=== PATIENT | female | born 1995 | race Caucasian/White ===

== ENCOUNTER 2017-01-10 14:03 | Emergency (ER) | payer OTHER ==
[2017-01-10 15:01] LABS: ALBUMIN 4.5 g/dL (3.5-5.0); BILIRUBIN - TOTAL 0.2 mg/dL (0.1-1.0); CREATININE 0.8 mg/dL (0.5-1.0); GLOBULIN (CALCULATION) 3.1 g/dL (2.2-4.2); POTASSIUM 3.6 mmol/L (3.5-5.1); TOTAL PROTEIN 7.6 g/dL (6.4-8.3)
[2017-01-10 15:03] LABS: BASOPHIL 0.1 % (0-2); EOSINOPHIL 3.6 % (0-5); HCT 44.3 % (37.0-47.0); HGB 15.1 g/dl (12.5-16.0); LYMPHOCYTE 24.3 % (15-48); MCH 28.9 pg (25.0-31.0); MCHC 34.1 g/dL (32.0-36.0); MCV 84.9 fL (78.0-100.0); MONOCYTE 4.3 % (0-12); MPV 8.8 fL (6.0-9.5); NEUTROPHIL 67.7 % (41-80); PLT 251 K/uL (150-400); RBC 5.22 M/uL (4.20-5.40); RDW 13.6 % (11.5-14.0); WBC 7.5 K/uL (4.0-10.5)
[2017-01-10 15:36] LABS: BILIRUBIN NEGATIVE (NEGATIVE); BLOOD NEGATIVE Ery/uL (NEGATIVE); COLOR YELLOW (YELLOW); GLUCOSE (U) NORMAL (NORMAL); KETONE (U) NEGATIVE (NEGATIVE); LEUKOCYTES 2+ Leu/uL (NEGATIVE); NITRITE NEGATIVE (NEGATIVE); PROTEIN NEGATIVE (NEGATIVE); SPECIFIC GRAVITY 1.025 (1.001-1.030); UROBILINOGEN 0.2 mg/dL (0.2-1.0)
[2017-01-10 15:43] LABS: CLARITY HAZY (CLEAR)
[2017-01-10 15:56] LABS: BACTERIA 1+; SQUAMOUS EPITHELIAL CELLS 20-50
== END 2017-01-10 17:11 | disposition home or self-care (01) ==
LOC: FER 14:03
PROVIDERS: Nurse Practitioner Family
DX: G40.909 Epilepsy, unspecified, not intractable, without status epilepticus (principal); F17.210 Nicotine dependence, cigarettes, uncomplicated
CPT/HCPCS: 36415; 80053; 81001; 85025; J2405